=== PATIENT | male | born 1955 | race Asian ===

== ENCOUNTER 2017-06-06 11:23 | Day surgery (SDC) | payer BC ==
[~2017-06-06] VITALS: Ht 170.2 cm; Wt 72.6 kg
[2017-06-06] MEDS ORDERED: LR 1,000 ML IV.SOLN IV ONE (13:25)
[2017-06-06] MEDS ORDERED: EPINEPHrine 1 MG/ML AMP IVP ONE (13:25)
[2017-06-06] MEDS ORDERED: WATER FOR IRRIGATION,STERILE 1,000 ML IRRIG.SOLN IR ONE (13:25)
[2017-06-06] MEDS ORDERED: NS IRRIG SOLN 1000 ML IR ONE (13:25)
[2017-06-06] MEDS ORDERED: MUPIROCIN 2% TOPICAL OINTMENT 22 GM TP ONE (13:25)
[2017-06-06] MEDS ORDERED: SUCCINYLCHOLINE CHLORIDE 20 MG/ML(QUELICIN) IVP ONE (13:25)
[2017-06-06] MEDS ORDERED: ONDANSETRON HCL 4 MG/2 ML VIAL IVP ONE (13:25)
[2017-06-06] MEDS ORDERED: BACITRACIN ZINC 15 GM TOPICAL OINTMENT TP ONE (13:25)
[2017-06-06] MEDS ORDERED: MIDAZOLAM HCL 5 MG/5 ML VIAL IVP ONE (13:25)
[2017-06-06] MEDS ORDERED: fentaNYL CITRATE/PF 100 MCG/2 ML AMP IVP ONE (13:25)
[2017-06-06] MEDS ORDERED: DEXAMETHASONE SOD PHOSPHATE 4 MG/ML VIAL IVP ONE (13:25)
[2017-06-06] MEDS ORDERED: OXYMETAZOLINE HCL 0.05% NASAL SPRAY NS ONE (13:25)
[2017-06-06] MEDS ORDERED: NS 50 ML BAG IV ONE (13:25)
[2017-06-06] MEDS ORDERED: PROPOFOL 200MG/ 20ML VIAL (DIPRIVAN) IV ONE (13:25)
[2017-06-06] MEDS ORDERED: SEVOFLURANE 15 MIN GAS INH ONE (13:25)
[2017-06-06] MEDS ORDERED: LR 1,000 ML IV SCH (14:46)
[2017-06-06] MEDS ORDERED: MORPHINE 4 MG/ML INJ. SYRINGE IVP PRN ×3 (15:00)
[2017-06-06] MEDS ORDERED: METOCLOPRAMIDE HCL 10 MG/2 ML VIAL IVP PRN (15:00)
[2017-06-06] MEDS ORDERED: MORPHINE 4 MG/ML INJ. SYRINGE ONE (15:56)
[2017-06-06 16:40] VITALS: BP_SYST 134
== END 2017-06-06 17:50 | disposition home or self-care (01) ==
LOC: SDS 11:23
PROVIDERS: ATTEND Otolaryngology
DX: J34.2 Deviated nasal septum (principal); D38.5 Neoplasm of uncertain behavior of other respiratory organs; J30.1 Allergic rhinitis due to pollen; E78.00 Pure hypercholesterolemia, unspecified; J32.9 Chronic sinusitis, unspecified; J34.89 Other specified disorders of nose and nasal sinuses; Z87.891 Personal history of nicotine dependence
CPT/HCPCS: 30140; 30520; 30999; 31255; 31256; J2270; 88305; 88311; J0171; J0330; J1100; J2250; J2405; J2704; J3010; J7120